=== PATIENT | female | born 1965 | race Caucasian/White ===

== ENCOUNTER 2016-11-19 15:00 | Inpatient (IN) | payer MEDICARE, OTHER ==
[~2016-11-19] VITALS: Ht 182.9 cm; Wt 116.6 kg
--- NOTE | ~2016-11-19 | PA ---
Unit #: [id number] #: [id number] Patient: OZZY CHAMPAGNE [id number] [facility] [address] [place] [address] [id number] I MR#: [id number] NAME: OZZY CHAMPAGNE ROOM: [facility] Age: 51 Sex: F Admission Date: 11/19/2016 : 1965 Date of Assessment: 11/20/2016 Attending Physician: Anthony Hart M.D. Admitting Physician: Anthony Hart M.D. Primary Care Physician: Primary Care Physician No PSYCHIATRIC ASSESSMENT IDENTIFYING INFORMATION The patient is a 51-year-old white female admitted to the [address] [place] [address] Unit after she allegedly made homicidal threats at a [facility] appointment. CHIEF COMPLAINT None given. INFORMANT(S) Patient, reliability is poor. HISTORY OF PRESENT ILLNESS The patient is a 51-year-old white female with history of severe borderline personality disorder. The patient claims to have a dissociative identity disorder and claims to have "27 others." During a dialectical behavioral therapy session, yesterday the patient had made homicidal threats against an individual who is part of an online justice system. The patient also claims that this may be a former psychologist who had seen her. The patient has a history of multiple previous hospitalizations the last of which occurred at this facility approximately 9 years ago. At that time, family sough guardianship. The patient reports that she has regained independence from guardianship at this time. The patient is on a host of psychotropic medications including Ativan, duloxetine, Geodon, Seroquel, prazosin, and Topamax. The patient also claims to be in chronic pain management and claimed that she has ran out of her medications "because my pain management doctor went on vacation." She is angrily demanding reinitiation of this medication as well as her Ativan. When seen today, the patient has threatened this physician and multiple staff members with violence if her demands for medication are not met. PAST PSYCHIATRIC HISTORY The patient is morbidly obese. She has degenerative disease and is status post bilateral knee replacement. She suffers from chronic pain, COPD, obstructive sleep apnea, and chronic pain medications. The patient claims to be prescribed morphine 30 mg 3 times daily. Other medications include Oragel, cyclobenzaprine, Topamax, Zofran, spironolactone, prazosin, Seroquel, Geodon, Armor Thyroid, duloxetine, Omeprazole, Proventil, Ativan, butalbital, and Lyrica. ALLERGIES None reported. FAMILY HISTORY Unit #: [id number] #: [id number] Patient: OZZY CHAMPAGNE Noncontributory. SOCIAL HISTORY The patient is disabled by her psychiatric illness and medical woes. 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 There is no reported use of psychoactive substances. MENTAL STATUS EXAMINATION Examination at this time reveals the patient to be an obese white female appearing her stated age. She is in a state of some dishevelment and appears somewhat older than her stated age. She is awake, alert, and oriented in all spheres. Her mood is angry and irritable. Her affect is congruent. Speech is generally well-coherent though frequently profane. There are no gross deficits in memory or cognition noted. Intelligence is judged to be in the average range based on fund of knowledge. The patient is less than optimally cooperative during interview. She continues to endorse both suicidal and homicidal ideation. She denies any psychotic symptoms. Her judgment and insight appear to be somewhat impaired. ASSETS AND LIABILITIES The patient's assets are to be assessed. Liabilities: Lack of resources. DIAGNOSTIC IMPRESSION 1. Dysthymic disorder. 2. Rule out opioid use disorder. 3. Borderline personality disorder, severe. 4. Chronic pain. 5. Obesity. 6. Obstructive sleep apnea. 7. Degenerative disk disease. 8. Hypothyroidism. 9. Gastroesophageal reflux disease. TREATMENT PLAN The patient remains hospitalized for safety and stabilization. It seems most unlikely that her appliance painter and refinisher would go on vacation without leaving some sort of coverage, and so the patient's story regarding her morphine seems to be a less believable one. Secondarily, the patient claims to be prescribed high doses of Ativan. However, it is widely acknowledged that [facility] does not treat the patients on benzodiazepines, and so the patient's claim to be prescribed this medication again seems less than optimally credible. She is to be placed on routine detoxification protocols and suicide precautions remain in place. Finally, the patient had been prescribed both Geodon and Seroquel. This seems to be needless polypharmacy as neither medication is at anywhere approaching its maximal dose. Accordingly, I will discontinue Seroquel and consider upward titration of Geodon. It is my concern that the patient may require IM medication for hospitalization. ESTIMATED LENGTH OF STAY 3 to 5 days. Dictated by... Unit #: [id number] #: [id number] Patient: OZYZ CHAMPAGNE M.D. CB/raisa TD: 11/20/2016 14:26 JOB #: [id number] PSYCHIATRIC ASSESSMENT Page 1 of 1 X Anthony Hart MD X PSYCHIATRIC ASSESSMENT
--- NOTE | ~2016-11-19 | CR142 ---
[facility] A Service of [facility] & [facility] RADIOLOGY TEXT RESULTS PATIENT: OZZY CHAMPAGNE LOCATION: P1S P110-2 : 67 UNIT #: [id number] AGE: [address]: Anthony Hart MD SEX: F ORDER DR: [id number] [facility] [address] [facility] [place], [place] [address] [id number] MR#: [id number] Acc #: [id number] NAME: OZZY CHAMPAGNE : 1965 SEX: F STUDY DATE/TIME: 11/20/2016 17:35 UNIT: P1S ROOM: [facility] STUDY DESCRIPTION: CR Hand Min 3 Views Rt Attending Physician: Anthony Hart M.D. Ordering Physician: Anthony Hart M.D. Primary Care Physician: No Primary Care Physician MEDICAL IMAGING REPORT This report is preliminary unless electronic signature is present EXAM Right hand, 3 views. HISTORY Pain, first metacarpal. Punched a wall yesterday. FINDINGS 3 views of the right hand demonstrate satisfactory bone alignment. Mild degenerative changes in the wrist at the first CMC joint. No fracture, joint space narrowing, or dislocation. No opaque soft tissue foreign body. IMPRESSION No acute findings. No fracture. Dictated by... Quique Parker M.D. THIS IS AN ELECTRONICALLY VERIFIED REPORT Quique Parker M.D. at 11/21/2016 4:30 PM JERARDO/heber TD: 11/20/2016 19:06 JOB #: [id number] MEDICAL IMAGING REPORT Page 1 of 1 COPY
--- NOTE | ~2016-11-19 | DS ---
Unit #: [id number] #: [id number] Patient: OZZY CHAMPAGNE [id number] [facility] [address] [place] [address] [id number] MR#: [id number] NAME: OZZY CHAMPAGNE ROOM: [facility] Age: 51 Sex: F Admission Date: 11/19/2016 : 1965 Discharge Date: 11/21/2016 Attending Physician: Anthony Hart M.D. Primary Care Physician: Primary Care Physician No DISCHARGE SUMMARY REASON FOR ADMISSION The patient is a 51-year-old white female admitted claiming to be suicidal and homicidal. HOSPITAL COURSE The patient is admitted to the [address] [place] [address] unit and placed on suicidal precautions. She demanded reinitiation of morphine claiming that she was only off this medication "because my pain management doctor is on vacation." It was explained to the patient that this did not seem to a particularly reasonable explanation for her being off morphine and she was therefore placed on a routine detoxification protocol for opiates and sedative hypnotics. The patient was fairly irritable during her stay in the hospital and her behavior within the therapeutic milieu was rather despicable with the patient assaulting threatening to assault staff, attempting to instigate peers to violence, etc. She requested discharge on 11/21/2016 and was at that point felt to have made positive benefit from inpatient psychiatric hospitalization more to the point the patient's primary pathology was felt to be characterological in nature and even more to the point it was felt that the threats that she had made were in effort to obtain prescriptions for opiates and sedative hypnotics both of which were declined by this physician. As per her request discharge was ordered. FINAL DIAGNOSES 1. Dysthymic disorder. 2. Borderline personality disorder, severe. 3. Hypothyroidism. 4. Morbid obesity. 5. Obstructive sleep apnea. 6. Migraine headache. 7. Hypertension. DISCHARGE MEDICATIONS The patient is discharged on the following medications: 1. Orajel topical daily for tooth pain. 2. Cyclobenzaprine 10 mg three times daily p.r.n. muscle stiffness. 3. Topamax 50 mg p.r.n. for migraine headache. 4. Zofran 4 mg daily for nausea and vomiting. 5. Spironolactone 25 mg daily for hypertension. 6. Prazosin 5 mg at h.s. for nightmares. 7. Geodon 60 mg at h.s. for mood stabilization. 8. [place] Thyroid 30 mg daily two tablets daily for a thyroid supplementation. Unit #: [id number] #: [id number] Patient: OZZY CHAMPAGNE 9. Duloxetine 120 mg daily for depression. 10. Omeprazole 20 mg daily for GERD. 11. Proventil two puffs q. 4 hours p.r.n. shortness of air. 12. Lyrica 200 mg q. 8 hours for pain. 13. Butalbital. 14. Acetaminophen. 15. Codeine 1 tablet q 8 hours p.r.n. migraine headache. No dietary or physical restrictions were placed on the patient at the time of discharge. She will follow through the auspices of community mental health resources. Her prognosis is considered guarded given the profanity of her Theriot II pathology. Dictated by... Anthony Hart M.D. AIDE/rajiv TD: 11/22/2016 03:56 JOB #: [id number] DISCHARGE SUMMARY Page 1 of 1 X Anthony Hart MD X DISCHARGE SUMMARY
--- NOTE | ~2016-11-19 | HP ---
Unit #: [id number] #: [id number] Patient: OZZY CHAMPAGNE [id number] [facility] [address] [place] [address] [id number] I MR#: [id number] NAME: OZZY CHAMPAGNE ROOM: P110 Age: 51 Sex: F Admission Date: 11/19/2016 : 1965 Attending Physician: Anthony Hart M.D. Admitting Physician: Anthony Hart M.D. Primary Care Physician: Primary Care Physician No HISTORY AND PHYSICAL HISTORY OF PRESENT ILLNESS Ozzy is a 51 year old admitted to [address] [place] [address] with depression, increased anxiety and verbalizing wanting to hurt herself. She is also withdrawing off of morphine. PAST MEDICAL HISTORY 1. History of polysubstance abuse to include pain medication/morphine. 2. Morbid obesity. 3. Obstructive sleep apnea. 4. High blood pressure. 5. Degenerative disc disease. 6. Seizure disorder. 7. Hypothyroidism. 8. COPD. 9. History of migraine headaches. PAST SURGICAL HISTORY Right knee. ALLERGIES Penicillin, sulfa, Talwin, Tegretol, methylprednisolone, prednisone, Cipro, azithromycin, methadone. SOCIAL HISTORY Smokes 3 packs per day. Denies alcohol. Admits to a history of opioid use/abuse. FAMILY HISTORY Medically noncontributory. REVIEW OF SYSTEMS CONSTITUTIONAL: No fever or chills. HEENT: Denies any sore throat, ear pain or runny nose. CARDIOVASCULAR: Denies chest pain, irregular heart rhythm or palpitations. CHEST: Denies shortness of breath or cough. No hemoptysis. GASTROINTESTINAL: Denies nausea, vomiting, diarrhea or chronic constipation. ENDOCRINE: Denies history of increased thirst or urination. No recent significant weight loss or gain. GENITOURINARY: Denies dysuria, frequency, or hematuria. SKIN: Denies any rashes. HEMATOLOGIC: Denies history of increased bleeding or bruising. MUSCULOSKELETAL: Denies any hot, swollen joints. No generalized muscle Unit #: [id number] #: [id number] Patient: OZZY CHAMPAGNE pain. NEUROLOGIC: Denies problems with vision or speech. No frequent, severe headaches. No numbness, tingling or weakness in any extremities. Denies loss of bladder or bowel control. CURRENT MEDICATIONS 1. Detox protocol. 2. Fioricet 1 tab q 8 hours p.r.n. 3. Lyrica 200 mg q. 8 hours. 4. Flexeril 10 mg t.i.d. p.r.n. 5. Topamax 50 mg q.h.s. 6. Minipress 5 mg q.h.s. 7. Geodon 60 mg q.h.s. 8. Spironolactone 25 mg daily. 9. Cymbalta 120 mg daily. 10. [place] Thyroid 60 mg daily. PHYSICAL EXAMINATION GENERAL: Alert, morbidly obese, no apparent distress. VITAL SIGNS: Blood pressure 146/110, heart rate 100, respirations 16, temperature 98.6. WEIGHT: 257. HEIGHT: 6 feet 0 inches. SKIN: Warm and dry without rash. She has a significant bruise along her right hand that was sustained after her admission. HEENT: Normocephalic. TMs not viewed. Oral and nasal passages clear. Conjunctivae clear. PERRLA. EOMs intact. NECK: Supple without lymphadenopathy or thyromegaly. HEART: Regular rate and rhythm without murmur. LUNGS: Clear. ABDOMEN: Soft, nontender. : Not done. EXTREMITIES: No evidence of cyanosis, clubbing or edema. Moves all without focal deficit. NEUROLOGICAL: Grossly within normal limits. Cranial Nerves: II: Visual lacy are intact. III, IV AND : Extraocular movements are intact. Pupils are equal, round and reactive to light. V: Facial sensation is grossly normal. VII: Facial movements and expression are normal. VIII: Auditory acuity grossly intact. IX, X: Uvula is midline. Phonation is normal. XI: Patient shrugs shoulders and turns head normally. XII: Tongue protrudes in the midline. Sensory and Motor Function: Sensory and motor sensation is grossly normal. Motor: moves all extremities well. Coordination: Gait is normal. Deep Tendon Reflexes: Intact. RECOMMENDATIONS PSYCHIATRIC: Per psychiatrist. MEDICAL: 1. See no contraindication to participate in facility's activities. 2. X-ray of her hand done earlier today showed no acute findings to include fracture or dislocation. MEDICAL PROGNOSIS Good. MEDICAL CONDITION Unit #: [id number] #: [id number] Patient: OZZY CHAMPAGNE Stable. Dictated by... Madison Griffith P.A.-C. for [place]/heraclio TD: 11/20/2016 22:49 JOB #: [id number] HISTORY AND PHYSICAL Page 1 of 1 X Madison Griffith HISTORY AND PHYSICAL
[2016-11-20 09:53] LABS: BASOPHIL# 0.1 X10e3 (0-0.3); BASOPHIL% 0.8 % (0-2.5); EOSINOPHIL# 0.4 X10e3 (0-0.7); EOSINOPHIL% 2.5 % (0.0-7.0); HEMOGLOBIN 14.2 gm/dL (12.0-16.0); LYMPHOCYTE# 4.3 X10e3 (1.0-3.5); LYMPHOCYTE% 24.4 % (17.0-45.0); MEAN CORPUSCULAR HEMOGLOBIN 28.3 PG (28-34); MEAN CORPUSCULAR HGB CONC 32.9 g/dL (30-36); MONOCYTE# 1.3 X10e3 (0-1.0); MONOCYTE% 7.2 % (3.0-12.0); NEUTROPHIL# 11.4 X10e3 (1.5-7.1); NEUTROPHIL% 65.1 % (40-75); PLATELET COUNT 310 X10e3 (140-420); RED CELL DISTRIBUTION WIDTH 15.1 % (11.0-15.5); WHITE BLOOD COUNT 17.5 X10e3 (4.0-10.5)
[2016-11-20 09:57] LABS: DIFF IND YES
[2016-11-20 09:59] LABS: URINE APPEARANCE CLEAR; URINE BILIRUBIN NEG (NEG); URINE BLOOD NEG (NEG); URINE COLOR YELLOW; URINE GLUCOSE NEG (NEG); URINE KETONE NEG (NEG); URINE LEUKOCYTE ESTERASE NEG (NEG); URINE NITRATE NEG (NEG); URINE PH 7.5 (5-8); URINE PROTEIN NEG (NEG); URINE SPECIFIC GRAVITY 1.007 (1.003-1.035); URINE UROBILINOGEN 0.2 MG/DL (NEG)
[2016-11-20 10:18] LABS: ANISOCYTOSIS SL; PLATELET ESTIMATE NORMAL (NORMAL)
[2016-11-20 10:40] LABS: ALBUMIN SERUM 3.8 g/dL (3.5-5.0); BILIRUBIN,TOTAL 0.6 mg/dL (0.2-2.0); CALCIUM SERUM 8.7 mg/dL (8.4-10.2); CREATININE SERUM 0.8 mg/dL (0.6-1.4); POTASSIUM 3.6 mmol/L (3.5-5.1); PROTEIN TOTAL SERUM 7.2 g/dL (6.0-8.3)
[2016-11-20 11:33] LABS: AMPHETAMINE NEG (NEG); BARBITURATES POS (NEG); BENZODIAZEPINES POS (NEG); COCAINE NEG (NEG); MARIJUANA NEG (NEG); OPIATES POS (NEG); TRICYCLIC ANTIDEPRESSANTS POS (NEG); U METHADONE NEG (NEG)
== END 2016-11-21 15:10 | disposition home or self-care (01) | DRG 881 ==
LOC: P1S 18:37
PROVIDERS: Specialist
DX: F34.1 Dysthymic disorder (principal); E66.01 Morbid (severe) obesity due to excess calories; G47.33 Obstructive sleep apnea (adult) (pediatric); E03.9 Hypothyroidism, unspecified; K21.9 Gastro-esophageal reflux disease without esophagitis; F60.3 Borderline personality disorder
CPT/HCPCS: 73130; 80053; 80307; 81003; 85025

== ENCOUNTER 2016-11-25 22:17 | Inpatient (IN) | payer MEDICARE, OTHER ==
[~2016-11-25] VITALS: Ht 190.5 cm; Wt 116.6 kg
--- NOTE | ~2016-11-25 | DS ---
Unit #: [id number] #: [id number] Patient: OZZY CHAMPAGNE [id number] [facility] [address] [place] [address] [id number] MR#: [id number] NAME: OZZY CHAMPAGNE ROOM: [facility] Age: 51 Sex: F Admission Date: 11/25/2016 : 1965 Discharge Date: 11/26/2016 Attending Physician: Anthony Hart M.D. Primary Care Physician: Primary Care Physician No DISCHARGE SUMMARY REASON FOR ADMISSION The patient is a 51-year-old white female, admitted to the [address] [place] [address] unit after she had allegedly made homicidal and suicidal threats in the emergency room at [facility]. HOSPITAL COURSE The patient was admitted briefly to the [address] [place] [address] unit and placed on room lockout precautions much to her chagrin. She was seen by this physician on the morning of 11/26/2016, and at that time, she denied suicidal ideation and requested discharge. She stated "me and my mother just cut into it." She vehemently denied any thoughts of suicide at that time and requested discharge. She was not felt to meet criteria for further inpatient hospitalization and discharge was ordered. FINAL DIAGNOSES Dysthymic disorder; borderline personality disorder, severe; obesity; hypothyroidism; migraine headache; and hypertension. DISPOSITION ON DISCHARGE The patient will continue previously prescribed medications including Cymbalta 120 mg daily for depression, [place] Thyroid 60 mg daily for hypothyroidism, Topamax 50 mg at bedtime for migraine headache, Geodon 60 mg at bedtime for mood stabilization, Aldactone 25 mg daily for hypertension. DIET AND ACTIVITY No dietary or physical restrictions were placed on the patient at the time of discharge. FOLLOWUP Followup will take place through the auspices of community mental health resources. PROGNOSIS The patient's prognosis is considered fair. Dictated by... Anthony Hart M.D. AIDE/srini TD: 11/26/2016 14:25 Unit #: [id number] #: [id number] Patient: OZZY CHAMPAGNE JOB #: [id number] DISCHARGE SUMMARY Page 1 of 1 X Anthony Hart MD X DISCHARGE SUMMARY
--- NOTE | ~2016-11-25 | PA ---
Unit #: [id number] #: [id number] Patient: OZZY CHAMPAGNE [id number] [facility] [address] [place] [address] [id number] I MR#: [id number] NAME: OZZY CHAMPAGNE ROOM: [facility] Age: 51 Sex: F Admission Date: 11/25/2016 : 1965 Date of Assessment: 11/26/2016 Attending Physician: Anthony Hart M.D. Admitting Physician: Anthony Hart M.D. Primary Care Physician: Primary Care Physician No PSYCHIATRIC ASSESSMENT IDENTIFYING INFORMATION The patient is a 51-year-old white female admitted to the [address] [place] [address] Unit after she had allegedly made suicidal and homicidal threats at [facility]. CHIEF COMPLAINT "Can I go home." INFORMANT(S) Patient and chart, reliability fair. HISTORY OF PRESENT ILLNESS The patient is a 51-year-old white female who was just discharged from this facility on 11/21/2016. She returns after having presented to the [facility] claiming to have some chest pain. The patient have reported a positive homicidal ideation at that time and had also reported suicidal ideation. When seen today, the patient is denying any such threats and is stating that "me and my mother just got into it." The patient is currently requesting discharge. For more complete history of present illness, please refer to previously dictated notes. PAST PSYCHIATRIC HISTORY Reviewed, no changes. PAST MEDICAL HISTORY Reviewed, no changes. MEDICATIONS 1. Cymbalta. 2. [place] Thyroid. 3. Topamax. 4. Geodon. 5. Aldactone. ALLERGIES None reported. FAMILY HISTORY Reviewed, no changes. SOCIAL HISTORY Reviewed, no changes. Unit #: [id number] #: [id number] Patient: OZZY CHAMPAGNE MENTAL STATUS EXAMINATION Examination at this time reveals the patient to be an obese white female appearing her stated age. She is in no apparent physical distress at the time of examination. She is awake, alert, and oriented in all spheres. Her mood is a bit irritable but generally pleasant and cooperative. Her affect is congruent. Speech is generally well-coherent. There are no gross deficits in memory or cognition noted. Intelligence is judged to be in the average range based on fund of knowledge. The patient is generally cooperative during interview. She denies current suicidal or homicidal ideation or psychotic features. Judgment and insight appear to be intact. ASSETS AND LIABILITIES The patient's assets are to be assessed. Liabilities: Profound characterologic pathology. DIAGNOSTIC IMPRESSION 1. Dysthymic disorder. 2. Borderline personality disorder, severe. 3. Hypothyroidism. 4. Migraine headache by history. 5. Hypertension. TREATMENT PLAN The patient is requesting discharge today and does not meet criteria for involuntary hospitalization, and as per her request discharge will be ordered the details of which will be included in the discharge summary to be dictated shortly. Dictated by... Anthony Hart M.D. Ania TD: 11/26/2016 13:55 JOB #: [id number] PSYCHIATRIC ASSESSMENT Page 1 of 1 X Anthony Hart MD X PSYCHIATRIC ASSESSMENT
--- NOTE | ~2016-11-25 | HP ---
Unit #: [id number] #: [id number] Patient: OZZY CHAMPAGNE [id number] [place] [address] [id number] I MR#: [id number] NAME: OZZY CHAMPAGNE ROOM: 15 Age: 51 Sex: F Admission Date: 11/25/2016 : 1965 Attending Physician: Anthony Hart M.D. Admitting Physician: Anthony Hart M.D. Primary Care Physician: Primary Care Physician No HISTORY AND PHYSICAL NOTE Ozzy is a 51 year old admitted and discharged within the first 24 hours. She was not seen for an H & P. Dictated by... Madison Griffith P.A.-C. for [place]/rajiv TD: 11/26/2016 21:10 JOB #: [id number] HISTORY AND PHYSICAL Page 1 of 1 X Madison Griffith X HISTORY AND PHYSICAL
== END 2016-11-26 15:12 | disposition home or self-care (01) | DRG 881 ==
LOC: P1S 23:51
DX: F34.1 Dysthymic disorder (principal); R45.851 Suicidal ideations; R45.850 Homicidal ideations; F60.3 Borderline personality disorder; E03.9 Hypothyroidism, unspecified; I10 Essential (primary) hypertension; G43.909 Migraine, unspecified, not intractable, without status migrainosus; E66.9 Obesity, unspecified; Z68.32 Body mass index [BMI] 32.0-32.9, adult